=== PATIENT | female | born 1990 | race Caucasian/White ===

== ENCOUNTER 2019-07-26 13:06 | Observation (INO) | payer MEDICAID ==
[~2019-07-26] VITALS: Ht 152.4 cm; Wt 68.9 kg
[2019-07-26] MEDS ORDERED: FERR325T6 PO (13:51)
[2019-07-26] MEDS ORDERED: PREN1TAB78 PO (13:52)
[2019-07-26] MEDS ORDERED: PNV91TAB6 PO (13:52)
== END 2019-07-26 16:00 | disposition home or self-care (01) ==
LOC: 8 EST LDRP 13:06
PROVIDERS: ADMIT Obstetrics & Gynecology; ATTEND Obstetrics & Gynecology
DX: O42.913 Preterm premature rupture of membranes, unspecified as to length of time between rupture and onset of labor, third trimester (principal); Z3A.33 33 weeks gestation of pregnancy
CPT/HCPCS: 76815; 76818; 81002; 99281; G0378